=== PATIENT | male | born 1995 | race Caucasian/White ===

== ENCOUNTER 2019-12-25 04:57 | Emergency (ER) | payer OTHER ==
[~2019-12-25] VITALS: Ht 188 cm; Wt 72.6 kg
[2019-12-25 06:23] LABS: URINE BILIRUBIN NEGATIVE (Negative); URINE BLOOD TRACE (Negative); URINE CLARITY CLEAR; URINE COLOR YELLOW; URINE GLUCOSE-RANDOM* NEGATIVE (Negative); URINE KETONES NEGATIVE (Negative); URINE NITRITE-REFLEX NEGATIVE (Negative); URINE PROTEIN (DIPSTICK) NEGATIVE (Negative); URINE UROBILINOGEN 0.2 E.U./dl (0.2-1.0)
[2019-12-25 06:30] LABS: URINE LEUKOCYTES-REFLEX 2+ (Negative)
[2019-12-25 06:42] LABS: AMP/METHAMP Negative (Negative); BARBITURATES Negative (Negative); BENZODIAZEPINES Negative (Negative); COCAINE Negative (Negative); METHADONE Negative (Negative); OPIATES Negative (Negative); PCP Negative (Negative)
[2019-12-25 06:43] LABS: CASTS None Seen /LPF (None Seen); SQUAMOUS 0-3 Few /LPF (0-3)
[2019-12-25 06:44] LABS: BACTERIA-REFLEX 1-9 Few /HPF (None Seen); CRYSTALS None Seen /LPF (None Seen); URINE RBC None Seen /HPF (0-2); URINE WBC-REFLEX 6-15 Few /HPF (0-5); WBC CLUMPS Occasional (None Seen)
[2019-12-25 07:13] LABS: ABSOLUTE NEUTROPHILS 2.7 thou/uL (1.4-8.2); BASOPHILS 0.3 % (0.0-2.0); HEMATOCRIT 43.4 % (42.0-52.0); HEMOGLOBIN 15.1 gm/dL (14.0-18.0); LYMPHOCYTES 34.8 % (24.0-44.0); MCH 31.7 pg (26.0-34.0); MCHC 34.8 g/dL (28.0-37.0); MCV 91.1 fL (80.0-100.0); MONOCYTES 11.5 % (1.0-8.0); PLATELET COUNT 317 thou/uL (150-400); POLYS 52.4 % (36.0-66.0); RBC 4.77 mil/uL (4.50-6.00); RDW 13.2 % (10.5-14.5); WBC 5.1 thou/uL (4.0-11.0)
[2019-12-25 07:16] LABS: ANION GAP 11 mmol/L (7-16); BUN 10 mg/dL (7-18); CALCIUM 8.7 mg/dL (8.5-10.1); CHLORIDE 104 mmol/L (98-107); CO2 24 mmol/L (21-32); GLUCOSE 96 mg/dL (74-106); POTASSIUM 3.9 mmol/L (3.5-5.1); SODIUM 139 mmol/L (136-145)
[2019-12-25 07:22] LABS: ALBUMIN 4.6 g/dL (3.4-5.0); SALICYLATE < 2.8 mg/dL (2.8-20.0); SGOT 15 U/L (15-37); SGPT 16 U/L (30-65); TOTAL BILIRUBIN 0.8 mg/dL (0.2-1.0); TOTAL PROTEIN 8.2 g/dL (6.4-8.2)
[2019-12-25 10:31] VITALS: BP 115/73
== END 2019-12-25 10:55 | disposition home or self-care (01) ==
LOC: ER 04:57
PROVIDERS: Emergency Medicine
DX: S60.221A Contusion of right hand, initial encounter (principal); R45.851 Suicidal ideations; F10.129 Alcohol abuse with intoxication, unspecified; Z20.828 Contact with and (suspected) exposure to other viral communicable diseases; Y90.4 Blood alcohol level of 80-99 mg/100 ml; X58.XXXA Exposure to other specified factors, initial encounter; Y93.89 Activity, other specified; Y92.89 Other specified places as the place of occurrence of the external cause; Y99.8 Other external cause status